=== PATIENT | female | born 1995 | race Caucasian/White ===

== ENCOUNTER 2016-12-23 10:03 | Emergency (ER) | payer BC, MEDICAID ==
[~2016-12-23] VITALS: Ht 149.9 cm; Wt 75.0 kg
[2016-12-23] MEDS ORDERED: IBUP-1542 PO (11:19)
[2016-12-23] MEDS ORDERED: AMOX1TAB10 PO (11:19)
--- NOTE | 2016-12-23 11:26 | ERD ---
ER Documentation Chief Complaint Chief Complaint dog bite to finger this am HPI 21-year-old female presented ED after a dog bite this morning. Patient stated that she was going out to her car at 4 AM this morning. She saw a dog approaching her, attempting to buy her leg. She tried to push the dog away when the dog bit her right index finger. Patient reports feeling numbness in her right index finger distal to the dog bite approximately 1 hour after the bite. She did not notice any collar on the dog, nor does she recognized the dog. Patient is right-hand dominant, she does not remember when her last tetanus shot was. Denies any other medical history. ROS All systems reviewed and are negative except as per history of present illness. Medications Home Meds Active Scripts Amoxicillin/Potassium Clav (Amox-Clav 875-125 mg Tablet) 875-125 mg Tab, 1 TAB PO BID for 7 Days, #14 TAB Prov:VERONICA SHAW. [employer] 12/23/16 Ibuprofen* (Motrin*) 600 Mg Tab, 600 MG PO Q6H Y for PAIN AND OR ELEVATED TEMP, #30 TAB Prov:VERONICA SHAW. [employer] 12/23/16 Allergies Allergies: Coded Allergies: No Known Allergy (Unverified , 12/01/13) PMhx/Soc Medical and Surgical Hx: pt denies Medical Hx, pt denies Surgical Hx Hx Alcohol Use: No Hx Substance Use: No Hx Tobacco Use: No Physical Exam Vitals Vital Signs Date Time Temp Pulse Resp B/P Pulse Ox O2 Delivery O2 Flow Rate FiO2 12/23/16 10:14 98.9 86 20 152/68 98 Physical Exam General: Well-developed, well-nourished, conscious and coherent, in no distress Skin: Warm and dry without rash, good texture and turgor Head: Normocephalic without evidence of trauma Eyes: Sclera and conjunctivae normal; pupils equal, round, and reactive to light; extraocular movements are intact Chest: Normal AP diameter. Good expansion without retractions. Nontender. Lungs are clear to auscultate bilaterally with good tidal volume Heart: Regular rate and rhythm. No murmur, rub, or gallops heard Extremities: Bite castro noted at the right index finger at the PIP joint, both dorsal and volar aspects, moderately swollen. Patient has decreased range of motion of the affected finger. Slight decreased sensation distal to the injury, Refill normal. Full range of motion otherwise. Good strength bilaterally. Peripheral pulses are intact. Sensation intact otherwise Neuro: Alert and oriented 4, GCS 15. Cranial nerves grossly intact. Motor and sensory exams nonfocal. Moves all extremities. Speech clear. Gait normal Results 24 hrs Current Medications Medications (Trade) Dose Ordered Sig/Josiah Route PRN Reason Start Time Stop Time Status Last Admin Dose Admin Ibuprofen (Motrin) 600 mg ONCE ONCE PO 12/23/16 11:30 12/23/16 11:31 DC 12/23/16 11:22 Diphtheria/ Tetanus/Acell Pertussis (Adacel) 0.5 ml ONCE ONCE IM* 12/23/16 11:30 12/23/16 11:31 DC 12/23/16 11:22 PROCEDURE: XR Right index finger CLINICAL INDICATION: Dog bite TECHNIQUE: AP, oblique, and lateral radiographs were submitted. COMPARISON: None FINDINGS: Osseous structures: appear well mineralized and intact with no fracture or destructive process identified. Joint spaces: are well maintained, with no significant spurring, erosion or joint effusion evident. Soft tissues: appear unremarkable. IMPRESSION: Unremarkable right index finger. Physician Shahnaz Date Time Electronically viewed and signed by Physician Shahnaz on 12/23/2016 11:52 RH/ CC: VERONICA SHAW [employer] Procedures/MDM Well-appearing 21-year-old female presented to ED was dog bite to her right index finger from 30 this morning. X-ray of the right index finger is negative for fractures or dislocations. The puncture wound from the dog bite appeared to be shallow. Patient's wound was thoroughly irrigated in the ED. Tdap given. I doubt by report also taken and faxed to [facility] animal control. I do not feel rabies prophylaxis is necessary at this time. Patient is advised to return to eating 2 days for follow-up wound check. Patient appears well, stable for discharge and outpatient management. Medical decision making shared with patient and family. Education provided to patient and family. Patient and family expressed understanding of the plan. Medications on discharge: Ibuprofen, Augmentin. Follow-up: Primary care provider in 2-3 days or return to ED if worse. Disclaimer: Inadvertent spelling and grammatical errors are likely due to EHR/ dictation software use and do not reflect on the overall quality of patient care. Also, please note that the electronic time recorded on this note does not necessarily reflect the actual time of the patient encounter. Departure Diagnosis: Primary Impression: Dog bite Encounter type: initial encounter Qualified Code: W54.0XXA - Dog bite, initial encounter Condition: Stable Patient Instructions: Dog Bite Referrals: [facility] YOU HAVE RECEIVED A MEDICAL SCREENING EXAM AND THE RESULTS INDICATE THAT YOU DO NOT HAVE A CONDITION THAT REQUIRES URGENT TREATMENT IN THE EMERGENCY DEPARTMENT. FURTHER EVALUATION AND TREATMENT OF YOUR CONDITION CAN WAIT UNTIL YOU ARE SEEN IN YOUR DOCTORS OFFICE WITHIN THE NEXT 1-2 DAYS. IT IS YOUR RESPONSIBILITY TO MAKE AN APPOINTMENT FOR FOLOW-UP CARE. IF YOU HAVE A PRIMARY DOCTOR --you should call your primary doctor and schedule an appointment IF YOU DO NOT HAVE A PRIMARY DOCTOR YOU CAN CALL OUR PHYSICIAN REFERRAL HOTLINE AT IF YOU CAN NOT AFFORD TO SEE A PHYSICIAN YOU CAN CHOSE FROM THE FOLLOWING [facility] [address] [facility] [facility] [address] [facility] [facility] [address] [facility] [facility] [address] [facility]. [facility] [address] [facility]. [facility] [address] Additional Instructions: Return to this facility in 2 DAYS for a follow-up exam.Return sooner if your condition worsens. VERONICA SHAW NP Dec 23, 2016 11:26
[2016-12-23] MEDS ORDERED: DIPHTH/TET/ACEL PERTUSS (ADULT) 0.5 ML VIAL IM* ONE (11:30)
[2016-12-23] MEDS ORDERED: IBUPROFEN 600 MG TAB PO ONE (11:30)
[2016-12-23 11:34] VITALS: Ht 149.9 cm; Wt 75.0 kg
--- NOTE | 2016-12-23 11:52 | RADRPT ---
PROCEDURE: XR Right index finger CLINICAL INDICATION: Dog bite TECHNIQUE: AP, oblique, and lateral radiographs were submitted. COMPARISON: None FINDINGS: Osseous structures: appear well mineralized and intact with no fracture or destructive process iden tified. Joint spaces: are well maintained, with no significant spurring, erosion or joint effusion evident. Soft tissues: appear unremarkable. IMPRESSION: Unremarkable right index finger. Physician Shahnaz Date Time Electronically viewed and signed by Shaista Lynn Physician on 12/23/2016 11:52 /
== END 2016-12-23 12:21 | disposition home or self-care (01) ==
LOC: FTE 10:03
DX: S61.250A Open bite of right index finger without damage to nail, initial encounter (principal); W54.0XXA Bitten by dog, initial encounter; Y92.9 Unspecified place or not applicable
CPT/HCPCS: 73140; 90471; 90715; Z7502; Z7610